=== PATIENT | male | born 1960 | race Caucasian/White ===

== ENCOUNTER 2020-06-30 15:30 | Outpatient (RCR) | payer OTHER, SELFPAY ==
--- NOTE | 2020-05-25 14:36 | PTOPEVAL ---
PHYSICAL THERAPY EVALUATION AND PLAN OF CARE 05-25-2020 The PT evaluation was completed for the diagnosis of lymphedema of face and radiation fibrosis. His treatment is scheduled for 1-2 x/week for 5 weeks. Thank you for referring Dorian Welch to [facility]. Please review, sign, date and return this plan of care [facility]. I agree with and certify that the following plan of care is medically necessary. Referring Physician Date Attending Provider: Leyla Zayas NP *PT Outpatient Evaluation Start: 05/25/20 13:47 Document 05/25/20 13:45 FRANCY (Rec: 05/25/20 14:35 FRANCY [id number]) Therapy Assessment Status Assessment Status Assessment Status Evaluation Outpatient Past Medical History Past Medical History Source of Past Medical History Patient Neurological History Hx Neurological Disorders No Significant History Cardiovascular History Hx Atrial Fibrillation Yes: cardioversion 5 yr ago- follows with cardiology Respiratory History Hx Sleep Apnea Yes: have CPAP for sleeping Gastrointestinal History Hx Gastrointestinal Disorders No Significant History Genitourinary History Hx Genitourinary Disorders No Significant History Musculoskeletal History Hx Back Injury Yes: few weeks ago, landed on butt when jumping off boat Endocrine History Hx Endocrine Disorders No Significant History HEENT History Hx HEENT Disorders No Significant History Evaluation Information Problem Diagnosis lymphedema s/p tonsil cancer Onset January 2020 Subjective Information started treatment for tonsil Query Text:As Reported By Patient/ cancer March 13; Family Prior Level of Function Activity Level (Last 3 Months) Occupation supervior for construction Activity of Daily Living Ability Independent Indoor/Home Mobility Independent Community Mobility Independent Comments Additional Prior Level of Function reports energy level about 60% Comments ; just returned to work today ; Pain Assessment Timing of Pain Assessment Timing of Pain Assessment Assessment Pain Scale Pain Scale Used Numeric (1 - 10) Self Report Pain Assessment Left Mouth Reported Pain Level 3 Pain Frequency Acute Lowest Pain Intensity 3 Greatest Pain Intensity 7 Other Pain Aggravating Factors eating, chewing Other Alleviating Interventions magic mouth wash, rinse mouth with baking soda, salt and water Additional Pain Comments some sleeping issues with getting comfortable Pain Score Pain Score 3: Self Rep
--- NOTE | 2020-06-30 16:02 | PTOPEVAL ---
PHYSICAL THERAPY DISCHARGE 06-30-2020 Refer to Clinical Summary below. Discharge PT services, goals were partially met. Thank you for referring Dorian Welch to [facility].? Please review, sign, date and return this discharge WILLA. I agree with and certify that the following plan of care is medically necessary. Referring Physician Date Attending Provider: Leyla Zayas, CHARGING BOARD OPERATOR : *PT Outpatient Discharge Document 06/30/20 15:30 FRANCY (Rec: 06/30/20 16:02 FRANCY [id number]) Subjective Information Rich reports: has pain and Query Text:As Reported By Patient/ problems chewing food and Family swallowing hurts his throat; is eating soft foods and liquids and is able to get all of the calories he requires; he has returned to full home and work tasks--working 9 to 9 &1/2 hours/day; is trying to do his self massage, but he wants his to help him and she is not always helping him ; he agrees to discharge from PT at this time. Pain Assessment Timing of Pain Assessment Timing of Pain Assessment Assessment Pain Scale Pain Scale Used Numeric (1 - 10) Self Report Pain Assessment Left Mouth Reported Pain Level 1 Other Pain Description hurts, sore, pain Lowest Pain Intensity 1 Greatest Pain Intensity 8 Other Pain Aggravating Factors swallowing solid food- pain over L treatment area--lower mandible/jaw line Pain Score Pain Score 1: Self Report Cervical and Lumbar ROM Cervical ROM Cervical ROM Comments sitting active ROM of his neck and B shoulders is WNL without pain reported; active mouth motions: open/ close and lateral jaw motion and tongue motions are WNL; Palpation Assessment Palpation Palpation tenderness and pain reported with palpation over L lower- mid mandible and jaw; in his mouth, there is an enlarged area of tissue at L posterior mouth--pt is sensitive and does not like to have the inner aspect of his mouth touched. Rehab Teaching Rehab Teaching Teaching Topic Rehab Teaching
== END 2020-07-01 12:46 | disposition home or self-care (01) ==
LOC: ANHPT 15:30
PROVIDERS: PCP Internal Medicine
DX: I89.0 Lymphedema, not elsewhere classified (principal); C09.9 Malignant neoplasm of tonsil, unspecified; J70.1 Chronic and other pulmonary manifestations due to radiation
CPT/HCPCS: 97140; 97161

== ENCOUNTER 2021-07-21 01:54 | Day surgery (SDC) | payer OTHER, SELFPAY ==
--- NOTE | 2021-07-21 10:00 | ECG_ITS ---
Measurements Intervals [place] Rate: 63 P: 62 NV: 251 QRS: 5 QRSD: 109 T: 44 QT: 438 QTc: 451 Interpretive Statements SINUS RHYTHM WITH FIRST DEGREE AV BLOCK LEFT ATRIAL ENLARGEMENT DELAYED PRECORDIAL R/S TRANSITION BASELINE ARTIFACT- V3 ABNORMAL ECG Electronically Signed On 07-21-2021 13:12:36 CDT by Alfonzo Arcos D.O.
[2021-07-21 11:18] VITALS: BMI 28.0
[2021-07-21 11:21] VITALS: BP 115/80; PULSE 79; RESP 18; TEMP 36.3; O2SAT 100
[2021-07-21 11:25] LABS: Anion Gap 8 mmol/L (8-16); Blood Urea Nitrogen 12 mg/dL (9-20); Carbon Dioxide 31 mmol/L (22-30); Chloride 102 mmol/L (98-107); Estimated CRCL calculation 78 ml/min; Estimated Glomerular Filt Rate > 60; Glucose 101 mg/dL (65-110); Magnesium 1.9 mg/dL (1.6-2.3); Potassium 4.3 mmol/L (3.4-5.0); Sodium 141 mmol/L (137-145)
--- NOTE | 2021-07-21 11:30 | ECG_ITS ---
Measurements Intervals [place] Rate: 72 P: NV: 0 QRS: 10 QRSD: 107 T: 47 QT: 397 QTc: 437 Interpretive Statements ATRIAL FIBRILLATION DELAYED PRECORDIAL R/S TRANSITION ABNORMAL ECG Electronically Signed On 07-21-2021 11:36:23 CDT by Alfonzo Arcos D.O.
--- NOTE | 2021-07-21 12:38 | PM.IMHP ---
H&P: HPI History of Present Illness Date/Time: 07/21/21 12:38 Chief Complaint: atrial fibrillation, symptomatic Narrative: patient has a history of paroxysmal atrial fibrillation, recently becoming persistent. He is having MALCOLM and not feeling well and is here for an elective electrical cardioversion. He has a history of Atrial fibrillation status post cardioversion in 2016, maintained on amiodarone, then Multaq, and more recently just with metoprolol. he has been anticoagulated with Xarelto chronically. He also has a history of, high cholesterol, sleep apnea, tonsillar cancer and thyroid disease. Pt has been NPO and not missed any does of Xarelto. recent echo showed LV function at the lower limit normal, EF 50-55% Review of Systems Constitutional: Constitutional: Reports fatigue Eyes: Eyes: Reports no additional eye complaints ENT: Reports system reviewed and no additional complaints, except as documented Cardiovascular: Cardiovascular: Denies chest pain, Denies leg edema, Denies lightheadedness and Denies palpitations Respiratory: Respiratory: Denies dyspnea on exertion Gastrointestinal: Gastrointestinal: Reports no additional gastrointestinal complaints Genitourinary: Genitourinary: Reports no additional male genitourinary complaints Musculoskeletal: Musculoskeletal: Reports no additional musculoskeletal complaints Integumentary/Breasts: Skin/Breast: Reports system reviewed and no additional complaints, except as docu Neurologic: Reports system reviewed and no additional complaints, except as documented Psychiatric: Psychiatric: Reports no additional psychiatric complaints [facility] Past Medical History Medical History (Updated 07/21/21 @ 12:50 by Catalina Rod MD) A-fib Cancer of tonsillar fossa 2020, tx w/ radiation tx Erectile dysfunction HLD (hyperlipidemia) HTN (hypertension) Obstructive sleep apnea Sleep apnea Surgical History Surgical History History of ankle surgery left History of right hip replacement Family History Family History Sibling Hypertension Family history of diabetes mellitus in first degree relative Family history of cardiovascular disease Mother Patient's mother is in good health Father Family history of malignant neoplasm of esophagus, Onset Age: 57 Patient's father is Family history of throat cancer Social History Social History (Updated 07/21/21 @ 12:50 by Catalina Rod MD) Social History: , 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[employer] Smoking status: Never smoker Alcohol intake: current Alcohol use details: socially Meds Home Medications and Allergies Home Medications Medication Instructions Recorded Confirmed Type atorvastatin 40 mg tablet 40 mg PO DAILY 11/12/19 07/21/21 History rivaroxaban 20 mg tablet 20 mg PO DAILY 11/12/19 07/21/21 History sildenafil 100 mg tablet 100 mg PO DAILY PRN 11/12/19 07/21/21 History amiodarone 200 mg PO DAILY 07/21/21 07/21/21 History losartan 25 mg PO DAILY 07/21/21 07/21/21 History Allergies Allergy/AdvReac Type Severity Reaction Status Date / Time No Known Allergies Allergy Unverified 04/24/14 13:05 Vital Signs Vital Signs - 24 hr 07/21/21 11:21 Temperature 97.3 F L Pulse Rate 79 Respiratory Rate 18 Blood Pressure 115/80 Pulse Oximetry 100 Exam Const: General: comfortable and no acute distress HENMT: Mouth: Yes moist mucous membranes Neck: Neck: supple Resp: Effort & Inspection: normal respiratory effort Auscultation: clear to auscultation bilaterally Cardio: Rate: regular rate Rhythm: abnormal rhythm irregularly irregular GI: GI Palp: Yes Soft to palpation and No Tenderness to palpation present (GI) Skin: General skin exam: normal color and no rashes or lesions noted Neuro: Cognition (Neuro): crista
--- NOTE | 2021-07-21 12:53 | WPDMODSED ---
Moderate Sedation Note-Pt Data Patient Data Diagnosis: Recurrent symptomatic atrial fibrillation Present Complaint: patient with a history of cardiomyopathy and atrial fibrillation, cardioversion a few years ago, now with recurrent persistent atrial fibrillation and MALCOLM. He is here for elective electrical cardioversion. Procedure to be performed/Plan: Conscious sedation Elective electrical cardioversion. Allergies Allergy/AdvReac Type Severity Reaction Status Date / Time No Known Allergies Allergy Unverified 04/24/14 13:05 Home Medications Medication Instructions Recorded Confirmed Type atorvastatin 40 mg tablet 40 mg PO DAILY 11/12/19 07/21/21 History rivaroxaban 20 mg tablet 20 mg PO DAILY 11/12/19 07/21/21 History sildenafil 100 mg tablet 100 mg PO DAILY PRN 11/12/19 07/21/21 History amiodarone 200 mg PO DAILY 07/21/21 07/21/21 History losartan 25 mg PO DAILY 07/21/21 07/21/21 History Current Medications: Active Medications Sodium Chloride (Normal Saline Iv) 1,000 mls @ 30 mls/hr IV CONT .Q24H VINICIUS Sedation/Anesthesia: No previous sedation/anesthesia problems (including family history). [facility] Past Medical History Medical History (Updated 07/21/21 @ 12:50 by Catalina Rod MD) A-fib Cancer of tonsillar fossa 2020, tx w/ radiation tx Erectile dysfunction HLD (hyperlipidemia) HTN (hypertension) Obstructive sleep apnea Sleep apnea Surgical History Surgical History History of ankle surgery left History of right hip replacement Family History Family History Sibling Hypertension Family history of diabetes mellitus in first degree relative Family history of cardiovascular disease Mother Patient's mother is in good health Father Family history of malignant neoplasm of esophagus, Onset Age: 57 Patient's father is Family history of throat cancer Social History Social History (Updated 07/21/21 @ 12:50 by Catalina Rod MD) Social History: , 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 Alcohol intake: current Alcohol use details: socially Mod Sed Physical Exam Physical Exam Pre Procedural Exam: Normal: Appearance, Eyes, Ears, Nose, Neck, Throat, Airway, Lungs, Heart Size, Heart Rate, Neuro Exam, Abdomen, Extremities and Skin and Variation: Heart Rhythm ( Irregular) Hours since solid foods: 12 Hours since liquid intake: 12 Mallampati Classification: class II Internal Medicine - PN: Obj Da Vital Signs Vital Signs: Vital Signs - 24 hr 07/21/21 11:21 Temperature 97.3 F L Pulse Rate 79 Respiratory Rate 18 Blood Pressure 115/80 Pulse Oximetry 100 Meds/Results Medications: Active Medications Generic Name Dose Route Start Last Admin Trade Name Yungq PRN Reason Stop Dose Admin Sodium Chloride 1,000 mls @ 30 mls/hr 07/21/21 10:00 Normal Saline Iv IV CONT .Q24H VINICIUS Labs CBC & Chem 7: 07/21/21 10:51 Labs: Laboratory Results - last 24 hr 07/21/21 10:51 Sodium 141 Potassium 4.3 Chloride 102 Carbon Dioxide 31 H Anion Gap 8 BUN 12 Creatinine 0.90 Estim Creat Clear Calc 78 Estimated GFR > 60 Glucose 101 Calcium 9.0 Magnesium 1.9 ASA Classification/Sedation ASA Classification/Sedation ASA Class: III Emergent: No Risks: Risks, benefits and alternatives explained and patient/family accepted plan for sedation. Patient re-evaluated immediately prior to sedation.
[2021-07-21 13:00] VITALS: BP 104/81; PULSE 76; RESP 11; O2SAT 100
[2021-07-21 13:05] VITALS: BP 112/81; PULSE 60; RESP 7; O2SAT 100
--- NOTE | 2021-07-21 13:06 | PM.OP ---
Procedure Note - Brief Procedure Note - Brief Date of procedure: 07/21/21 Pre-op diagnosis: a-fib Post-op diagnosis: same Procedure performed: conscious sedation Elective electrical cardioversion Description of procedure: successful cardioversion Surgeon: Catalina Rod MD Condition: stable Disposition: observation
--- NOTE | 2021-07-21 13:06 | W.PM.PROC2 ---
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 Patient was found to be back in atrial fibrillation in April and is Not feeling well with it, desires an elective electrical cardioversion. His metoprolol was changed amiodarone to provide better anti rhythmic qualities and avoid bradycardia. He has been anticoagulated with Xarelto. . Description of Procedure Conscious sedation: Assessment: The patient has no history of anesthesia problems. The patient's oropharynx is clear. The patient was deemed to be a good candidate for conscious sedation. The patient had continuous hemodynamic monitoring during the procedure. Start time: 1257 Completion time: 1306 Total conscious sedation time: 9 minutes Medications: versed 4 mg and fentanyl 100 mcg IVP Trained observer: Emmett Fan RN Outcome: The patient tolerated the procedure well with no complications. Cardioversion: After informed consent and the above conscious sedation, the patient underwent elective electrical synchronized cardioversion with two hundred joules of biphasic energy and converted to normal sinus rhythm. There were no complications. FU in 1 month for an EKG and office visit. Continue current medications; amiodarone is plan for short-term use , then likely will switch back to metoprolol. . Complications No immediate complications Condition stable Disposition observation
[2021-07-21 13:15] VITALS: BP 107/80; PULSE 63; RESP 8; O2SAT 99
[2021-07-21 13:30] VITALS: BP 105/77; PULSE 67; RESP 18; O2SAT 98
[2021-07-21 13:45] VITALS: BP 105/73; PULSE 70; RESP 15; O2SAT 100
--- NOTE | 2021-07-21 14:06 | SUR.PHASEII ---
IV d/c'd from ac area, catheter intact. NO signs of redness or hematoma. Discharge instructions reviewed with patient with stated understanding. D/c via wheelchair to personal vehicle with driving.
== END 2021-07-21 14:00 | disposition home or self-care (01) ==
PROVIDERS: PCP Internal Medicine; Visit Provider Internal Medicine Cardiovascular Disease
PROC: 5A2204Z Restoration of Cardiac Rhythm, Single (ICD-10-PCS; principal; 2021-07-21 11:30)
DX: I48.19 Other persistent atrial fibrillation (principal); R06.09 Other forms of dyspnea; I42.9 Cardiomyopathy, unspecified; Z79.01 Long term (current) use of anticoagulants; E78.00 Pure hypercholesterolemia, unspecified; E07.9 Disorder of thyroid, unspecified; I10 Essential (primary) hypertension; G47.33 Obstructive sleep apnea (adult) (pediatric); Z85.818 Personal history of malignant neoplasm of other sites of lip, oral cavity, and pharynx
CPT/HCPCS: 36415; 80048; 83735; 92960; J2250; J3010; J7040

== ENCOUNTER 2022-09-07 01:38 | Day surgery (SDC) | payer OTHER, SELFPAY ==
[2022-09-06 16:05] VITALS: BMI 29.4
[2022-09-07] VITALS (8 sets, daily range): BP systolic 90–109; BP diastolic 52–73; PULSE 60–76; RESP 8–16; TEMP 37.1; O2SAT 96–100; BMI 27.7
--- NOTE | 2022-09-07 07:00 | ECG_ITS ---
Measurements Intervals [place] Rate: 59 P: 60 AL: 255 QRS: 9 QRSD: 104 T: 60 QT: 442 QTc: 438 Interpretive Statements SINUS BRADYCARDIA WITH FIRST DEGREE AV BLOCK DELAYED PRECORDIAL R/S TRANSITION CONSIDER INFERIOR INFARCT, AGE INDETERMINATE ABNORMAL ECG COMPARED TO ECG 09/07/2022 07:15:25 SINUS BRADYCARDIA NOW PRESENT FIRST DEGREE AV BLOCK NOW PRESENT Electronically Signed On 09-07-2022 12:08:43 CLERICAL PROOFREADER by Alfonzo Arcos D.O.
[2022-09-07 07:56] LABS: Anion Gap 11 mmol/L (8-16); Blood Urea Nitrogen 24 mg/dL (9-20); Calcium 8.9 mg/dL (8.4-10.2); Carbon Dioxide 29 mmol/L (22-30); Chloride 101 mmol/L (98-107); Estimated CRCL calculation 56 ml/min; Estimated Glomerular Filt Rate 56; Glucose 105 mg/dL (65-110); Magnesium 2.2 mg/dL (1.6-2.3); Potassium 4.2 mmol/L (3.4-5.0); Sodium 141 mmol/L (137-145)
--- NOTE | 2022-09-07 08:44 | WPDHPUPDATE1 ---
History and Physical Update Update Date/Time: 09/07/22 08:44 History and Physical has been reviewed, including an updated exam of the patient. There are NO changes in the patient's condition. Risks, benefits, and alternatives have been discussed and questions answered. Patient agrees to proceed with procedure.
--- NOTE | 2022-09-07 08:44 | WPDMODSED ---
Moderate Sedation Note-Pt Data Patient Data Diagnosis: Atrial fibrillation Present Complaint: Atrial fibrillation Procedure to be performed/Plan: Cardioversion Allergies Allergy/AdvReac Type Severity Reaction Status Date / Time lisinopril Allergy Cough Verified 09/07/22 08:01 Home Medications Medication Instructions Recorded Confirmed Type atorvastatin 40 mg tablet 40 mg PO DAILY 11/12/19 09/06/22 History rivaroxaban 20 mg tablet (Xarelto) 20 mg PO DAILY 11/12/19 09/06/22 History sildenafil 100 mg tablet (Viagra) 100 mg PO DAILY PRN Erectile 11/12/19 09/06/22 History Dysfunction amiodarone 200 mg tablet 200 mg PO DAILY 07/21/21 09/07/22 History losartan 25 mg tablet 25 mg PO DAILY 07/21/21 09/07/22 History diclofenac sodium 1 % topical gel See Rx Instructions .Route .COMPLEX 09/06/22 09/06/22 History metoprolol tartrate 50 mg tablet 25 mg PO BID 09/06/22 09/06/22 History mupirocin 2 % topical ointment 1 applic topical BID PRN Wound Care 09/07/22 09/07/22 History Current Medications: Active Medications Sodium Chloride (Normal Saline Iv) 1,000 mls @ 30 mls/hr IV CONT .Q24H VINICIUS Sedation/Anesthesia: No previous sedation/anesthesia problems (including family history). [facility] Past Medical History Medical History A-fib Cancer of tonsillar fossa 2020, tx w/ radiation tx Erectile dysfunction HLD (hyperlipidemia) HTN (hypertension) Obstructive sleep apnea Sleep apnea Surgical History Surgical History History of ankle surgery left History of right hip replacement Family History Family History Sibling Hypertension Family history of diabetes mellitus in first degree relative Family history of cardiovascular disease Mother Patient's mother is in good health Father Family history of malignant neoplasm of esophagus, Onset Age: 57 Patient's father is Family history of throat cancer Social History Social History Social History: , 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 smoker Alcohol intake: current Alcohol use details: socially Substance use type: does not use Living arrangements: with family Spiritual care concerns: No Mod Sed Physical Exam Physical Exam Pre Procedural Exam: Normal: Appearance, Neuro Exam, Abdomen, Extremities and Skin and Variation: Heart Rhythm (Irregularly irregular) Hours since solid foods: 12 Hours since liquid intake: 8 Mallampati Classification: class III Internal Medicine - PN: Obj Da Vital Signs Vital Signs: Vital Signs - 24 hr 09/07/22 07:24 Temperature 37.1 C Pulse Rate 64 Respiratory Rate 16 Blood Pressure 109/65 Pulse Oximetry 99 Oxygen Delivery Room Air Meds/Results Medications: Active Medications Generic Name Dose Route Start Last Admin Trade Name Freq PRN Reason Stop Dose Admin Sodium Chloride 1,000 mls @ 30 mls/hr 09/07/22 07:00 Normal Saline Iv IV CONT .Q24H VINICIUS Labs CBC & Chem 7: 09/07/22 07:17 Labs: Laboratory Results - last 24 hr 09/07/22 07:17 Sodium 141 Potassium 4.2 Chloride 101 Carbon Dioxide 29 Anion Gap 11 BUN 24 H D Creatinine 1.30 Estim Creat Clear Calc 56 Estimated GFR 56 L Glucose 105 Calcium 8.9 Magnesium 2.2 ASA Classification/Sedation ASA Classification/Sedation ASA Class: II Emergent: No Risks: Risks, benefits and alternatives explained and patient/family accepted plan for sedation. Patient re-evaluated immediately prior to sedation.
--- NOTE | 2022-09-07 08:45 | ECG_ITS ---
Measurements Intervals [place] Rate: 58 P: [place]: 0 QRS: 44 QRSD: 105 T: 58 QT: 399 QTc: 395 Interpretive Statements ATRIAL FIBRILLATION WITH SLOW VENTRICULAR RESPONSE DELAYED PRECORDIAL R/S TRANSITION ABNORMAL ECG COMPARED TO ECG 07/21/2021 13:10:30 ATRIAL FIBRILLATION NOW PRESENT Electronically Signed On 09-07-2022 7:52:01 ANNEALING FURNACE OPERATOR by Alfonzo Arcos D.O.
--- NOTE | 2022-09-07 08:45 | WPDCARDVER ---
Cardioversion Cardioversion Date of procedure: 09/07/22 Procedure: Elective cardioversion Pre-op diagnosis: Atrial fibrillation Post-op diagnosis: Other (Sinus rhythm) Indications: Atrial fibrillation Description of procedure: Start time: 08:46 End time: 08:56 Total conscious sedation time: 10 minutes After informed consent was obtained, time out was performed. Patient was administered moderate sedation. After the patient was appropriately sedated, electrical synchronized cardioversion was performed with 200 joules of biphasic energy with restorationism of sinus rhythm after 1 shock. Patient remained hemodynamically stable throughout procedure. Patient remained stable from a respiratory standpoint throughout procedure. Sedation: Versed 3mg and Fentanyl 100mcg were administered by ADRIANA Barnes. Findings: Successful elective electrical cardioversion with restorationism of sinus rhythm after 1 shock at 200 joules. Conclusion: Successful elective electrical cardioversion with restorationism of sinus rhythm after 1 shock at 200 joules.
== END 2022-09-07 10:00 | disposition home or self-care (01) ==
PROVIDERS: PCP Internal Medicine Cardiovascular Disease; Visit Provider Internal Medicine
PROC: 5A2204Z Restoration of Cardiac Rhythm, Single (ICD-10-PCS; principal; 2022-09-07 08:30)
DX: I48.91 Unspecified atrial fibrillation (principal); I42.8 Other cardiomyopathies; I10 Essential (primary) hypertension; E78.5 Hyperlipidemia, unspecified; G47.33 Obstructive sleep apnea (adult) (pediatric); Z85.818 Personal history of malignant neoplasm of other sites of lip, oral cavity, and pharynx; Z92.3 Personal history of irradiation; Z79.01 Long term (current) use of anticoagulants
CPT/HCPCS: 36415; 80048; 83735; 92960; J2250; J3010; J7030